=== PATIENT | female | born 1970 | race Caucasian/White ===

== ENCOUNTER 2017-03-12 15:58 | Emergency (ER) | payer OTHER ==
[~2017-03-12 15:58] MED LIST: ACIPHEX20 MG PO; CELEXA PO; CLARITIN10 M2 PO; CLARITIN10 MG PO; CLEOCIN PO; FLEXERIL10 M1 PO; FLEXERIL10 MG PO; GLUCOPHAGE XR500 MG PO; GLUCOPHAGE500 M1 PO; HUMALOG MI100 UNIT/1 SQ; IBUPROFEN PO; IBUPROFEN800 MG PO; JANUVIA PO; KEFLEX250 M1 PO; LIPITOR20 MG PO; LISINOPRIL PO; LISINOPRIL10 MG PO; LORTAB 5/500 TA1 TA1 PO; NAPROSYN500 MG PO; NAPROXEN PO; PREDNISONE PO; PRILOSEC PO; TESSALON PERLE100 M1 PO; TYLENOL #3 PO; ZANTAC
== END 2017-03-12 16:26 | disposition home or self-care (01) ==
LOC: CED 15:58
DX: J20.9 Acute bronchitis, unspecified (principal); J06.9 Acute upper respiratory infection, unspecified; E11.9 Type 2 diabetes mellitus without complications; I10 Essential (primary) hypertension; Z98.890 Other specified postprocedural states
CPT/HCPCS: 99282